=== PATIENT | female | born 1990 | race Two or more races ===

== ENCOUNTER → 2021-05-12 12:05 | Outpatient (CLI) | payer BC, SELFPAY ==
[2021-05-14 20:56] LABS: HPV APTIMA, High Risk Negative (Negative)
== END ==
PROVIDERS: Visit Provider Obstetrics & Gynecology
DX: Z12.4 Encounter for screening for malignant neoplasm of cervix (principal); R30.0 Dysuria
CPT/HCPCS: 87086; 87624; 88175; G0145